=== PATIENT | male | born 1965 | race Caucasian/White ===

== ENCOUNTER 2022-07-19 09:08 | Outpatient (CLI) | payer OTHER, SELFPAY ==
[2022-07-19 14:28] LABS: Cholesterol* 145 mg/dL (90-199); Triglycerides* 155 mg/dL (40-149)
[2022-07-19 14:29] LABS: HDL Cholesterol* 40 mg/dL (>=40); LDL Cholesterol Calculated 74 mg/dL (<100)
[2022-07-19 14:59] LABS: PSA Screen* 1.33 ng/mL (0.10-4.00)
== END 2022-07-19 09:09 | disposition home or self-care (01) ==
PROVIDERS: PCP Family Medicine; Visit Provider Family Medicine
DX: Z00.00 Encounter for general adult medical examination without abnormal findings (principal); Z12.5 Encounter for screening for malignant neoplasm of prostate; Z13.6 Encounter for screening for cardiovascular disorders
CPT/HCPCS: 80061; 84153

== ENCOUNTER 2024-07-19 08:18 | Outpatient (CLI) | payer OTHER, SELFPAY | END 2024-07-19 08:19 | disposition home or self-care (01) | PROVIDERS: PCP Family Medicine; Visit Provider Family Medicine | DX: Z00.00 Encounter for general adult medical examination without abnormal findings (principal); Z13.6 Encounter for screening for cardiovascular disorders; Z12.5 Encounter for screening for malignant neoplasm of prostate; Z13.1 Encounter for screening for diabetes mellitus | CPT/HCPCS: 80048; 80061; G0103 ==

== ENCOUNTER 2025-08-15 08:19 | Outpatient (CLI) | payer OTHER, SELFPAY | END 2025-08-15 08:20 | disposition home or self-care (01) | PROVIDERS: PCP Family Medicine; Visit Provider Family Medicine | DX: Z13.1 Encounter for screening for diabetes mellitus (principal); Z13.6 Encounter for screening for cardiovascular disorders; Z12.5 Encounter for screening for malignant neoplasm of prostate | CPT/HCPCS: 80048; 80061; G0103 ==